=== PATIENT | male | born 1990 | race Caucasian/White ===

== ENCOUNTER 2024-06-29 13:59 | Inpatient (IN) | payer SELFPAY ==
[2024-06-29] MEDS ORDERED: Fentanyl CADD 100 ML IV SCH (14:15)
[2024-06-29 14:21] LABS: #Basophils 0.03 10x3/uL (0.0-0.2); %Basophils 0.4 % (0.0-1.0); %Eosinophils 3.3 % (0.0-10.0); %Lymphocytes 22.3 % (21.0-51.0); %Monocytes 5.3 % (0.0-10.0); %Neutrophils 68.5 % (42.0-75.0); Hematocrit 40.2 % (42.0-52.0); Hemoglobin 13.6 g/dL (14.0-18.0); Mean Corpuscular HGB CONC 33.8 g/dL (32.0-36.0); Mean Corpuscular Hemoglobin 30.8 pg (27.0-31.0); Mean Platelet Volume 9.3 fL (7.4-10.4); Platelet Count 190 10x3/uL (130-400); RBC Distribution Width 12.5 % (11.5-14.5); Red Blood Cell (RBC) Count 4.42 mill/uL (4.70-6.10)
[2024-06-29 14:35] LABS: ALT (SGPT) 14 U/L (8-55); AST (SGOT) 18 U/L (5-34); Albumin 4.1 g/dL (3.5-5.0); Alkaline Phosphatase 46 U/L (40-110); Anion Gap 14 mmol/L (10-20); BUN (Urea Nitrogen) 18 mg/dL (8.9-20.6); Bilirubin, Total 0.4 mg/dL (0.2-1.2); Calc. Creatinine Clearance 0 mL/min (70-130); Calcium 8.7 mg/dL (7.8-10.44); Carbon Dioxide 23 mmol/L (22-29); Chloride 106 mmol/L (98-107); Estimated GFR 117; Globulin 2.5 g/dL (2.4-3.5); Glucose 163 mg/dL (70-105); Potassium 3.6 mmol/L (3.5-5.1); Protein, Total 6.6 g/dL (6.0-8.3); Sodium 139 mmol/L (136-145)
[2024-06-29] MEDS ORDERED: Glucagon 1 MG/ML KIT IM PRN (14:36)
[2024-06-29] MEDS ORDERED: Ondansetron PF 4 MG/2 ML Vial IVP PRN (14:36)
[2024-06-29] MEDS ORDERED: Dextrose 5% in Water 1,000 ML IV PRN (14:36)
[2024-06-29] MEDS ORDERED: Ipratropium/Albuterol 3 ML NEB NEB PRN (14:36)
[2024-06-29] MEDS ORDERED: Ondansetron ODT 4 MG TAB PO PRN (14:36)
[2024-06-29] MEDS ORDERED: hydrALAZINE 20 MG/ML VIAL SLOW IVP PRN (14:36)
[2024-06-29] MEDS ORDERED: Dextrose 50% Abboject 50 ML SYRINGE SLOW IVP PRN (14:36)
[2024-06-29] MEDS ORDERED: Acetaminophen 325 MG TAB PO PRN (14:36)
[2024-06-29 14:42] LABS: PTT 22.9 sec (22.9-36.1); Prothrombin Time 13.2 sec (12.0-14.7)
[2024-06-29] MEDS ORDERED: diphenhydrAMINE 25 MG CAP PO PRN (14:53)
[2024-06-29] MEDS ORDERED: fentaNYL 50 mcg/mL 1 mL Vial ONE ×3 (15:02→18:50)
[2024-06-29] MEDS ORDERED: Methocarbamol 500 MG TAB PO PRN (16:40)
[2024-06-29] MEDS: fentaNYL 50 mcg/mL 1 mL Vial SLOW IVP PRN ×2 (16:57→18:51)
[2024-06-29 16:59] LABS: Troponin I Less than 0.010 ng/mL (< 0.028)
[2024-06-29] MEDS ORDERED: Gabapentin 300 MG CAP ONE ×2 (18:26→21:10)
[2024-06-29] MEDS: Gabapentin 300 MG CAP PO SCH (18:49)
[2024-06-29] MEDS ORDERED: Ketorolac Tromethamine 30 MG (1 mL) VIAL ONE (20:12)
[2024-06-29] MEDS: Ketorolac Tromethamine 30 MG (1 mL) VIAL IVP PRN (20:15)
[2024-06-29] MEDS ORDERED: CEFAZOLIN 2 GM VIAL ONE (22:45)
[2024-06-29] MEDS ORDERED: Sodium Chloride 0.9% 100 ML ONE (22:45)
[2024-06-29] MEDS: CEFAZOLIN 2 GM in Sodium Chloride 0.9% 100 ML IVPB SCH (22:57)
[2024-06-30] MEDS ORDERED: Sodium Chloride 0.9% 100 ML ONE ×2 (05:38→10:52)
[2024-06-30] MEDS ORDERED: CEFAZOLIN 2 GM VIAL ONE ×2 (05:38→10:52)
[2024-06-30 06:17] LABS: #Basophils Less than 0.03 10x3/uL (0.0-0.2); %Basophils 0.2 % (0.0-1.0); %Eosinophils 2.4 % (0.0-10.0); %Lymphocytes 28.7 % (21.0-51.0); %Monocytes 6.9 % (0.0-10.0); %Neutrophils 61.3 % (42.0-75.0); Hematocrit 37.6 % (42.0-52.0); Hemoglobin 12.6 g/dL (14.0-18.0); Mean Corpuscular HGB CONC 33.5 g/dL (32.0-36.0); Mean Corpuscular Hemoglobin 30.8 pg (27.0-31.0); Mean Corpuscular Volume 91.9 fL (78.0-98.0); Mean Platelet Volume 9.4 fL (7.4-10.4); Platelet Count 180 10x3/uL (130-400); RBC Distribution Width 12.6 % (11.5-14.5); Red Blood Cell (RBC) Count 4.09 mill/uL (4.70-6.10)
[2024-06-30] MEDS ORDERED: Ketorolac Tromethamine 30 MG (1 mL) VIAL ONE (06:17)
[2024-06-30 06:29] LABS: Anion Gap 10 mmol/L (10-20); BUN (Urea Nitrogen) 10 mg/dL (8.9-20.6); Calc. Creatinine Clearance 0 mL/min (70-130); Calcium 8.7 mg/dL (7.8-10.44); Carbon Dioxide 25 mmol/L (22-29); Chloride 108 mmol/L (98-107); Estimated GFR 120; Glucose 97 mg/dL (70-105); Potassium 3.7 mmol/L (3.5-5.1); Sodium 139 mmol/L (136-145)
[2024-06-30] MEDS ORDERED: Gabapentin 300 MG CAP ONE (08:07)
[2024-06-30] MEDS ORDERED: fentaNYL PF 100 MCG/2 ML SYRINGE ONE ×2 (10:40→11:48)
[2024-06-30] MEDS ORDERED: PROPOFOL 20 ML ONE (10:40)
[2024-06-30] MEDS ORDERED: Lidocaine 1% PF 5 ML VIAL ONE (10:41)
[2024-06-30] MEDS ORDERED: Ondansetron PF 4 MG/2 ML Vial ONE (10:41)
[2024-06-30] MEDS ORDERED: Dexamethasone 20 MG/5 ML VIAL ONE (10:41)
[2024-06-30] MEDS ORDERED: Rocuronium Bromide 10 MG/ML (10ML VIAL) ONE (10:41)
[2024-06-30] MEDS ORDERED: Midazolam HCl 2 mg/2 ml Vial ONE (10:43)
[2024-06-30] MEDS ORDERED: Ipratropium/Albuterol 3 ML NEB ONE (10:49)
[2024-06-30] MEDS ORDERED: Dexmedetomidine 200 MCG/2 ML VIAL ONE (14:18)
[2024-06-30] MEDS ORDERED: HYDROmorphone 2 MG/ML VIAL ONE (14:24)
[2024-06-30] MEDS ORDERED: SUGAMMADEX SODIUM 200 MG/2 ML VIAL ONE ×3 (14:42→14:57)
[2024-06-30] MEDS ORDERED: Bupivacaine 0.25% HCL 30 ML VIAL ONE (14:45)
[2024-06-30 20:12] VITALS: BMI 24.5
[2024-06-30] MEDS: TETANUS, DIPHTHERIA TOX,ADULT (TDVAX) 0.5 ML VIAL IM ONE (20:16)
[2024-06-30] MEDS: CEFAZOLIN 2 GM in Sodium Chloride 0.9% 100 ML IVPB SCH (20:17)
[2024-06-30] MEDS: traMADol HCl 50 MG TAB PO PRN (20:20)
[2024-07-01 08:14] VITALS: BP 121/64; TEMP 97.6
[2024-07-02] MEDS ORDERED: FLU (Fluarix Triv) TS24-25(6MOS UP)/PF 45 MCG/0.5 ML Syringe IM ONE (17:15)
== END 2024-07-01 12:25 | disposition home or self-care (01) | DRG 513 ==
LOC: ERS 13:59 → ERHOLD 14:52 → T4-B 06-30 18:27
PROVIDERS: ADMIT Surgery; ATTEND Surgery
PROC: 0PSV0ZZ Reposition Left Finger Phalanx, Open Approach (ICD-10-PCS; principal; 2024-06-30)
PROC: 0LQ80ZZ Repair Left Hand Tendon, Open Approach (ICD-10-PCS; 2024-06-30)
PROC: 01U Peripheral Nervous System, Supplement (ICD-10-PCS; 2024-06-30)
DX: S62.611B Displaced fracture of proximal phalanx of left index finger, initial encounter for open fracture (principal); S66.921A Laceration of unspecified muscle, fascia and tendon at wrist and hand level, right hand, initial encounter; W27.0XXA Contact with workbench tool, initial encounter; F17.210 Nicotine dependence, cigarettes, uncomplicated; Z91.013 Allergy to seafood; Z88.5 Allergy status to narcotic agent; Z98.890 Other specified postprocedural states; S64.22XA Injury of radial nerve at wrist and hand level of left arm, initial encounter; S64.02XA Injury of ulnar nerve at wrist and hand level of left arm, initial encounter; S64.495A Injury of digital nerve of left ring finger, initial encounter
CPT/HCPCS: 36415; 71045; 80048; 80053; 84484; 85025; 85610; 85730; 93005; 93010; A6223; G0390; J0665; J1100; J1170; J1885; J2250; J2405; J2704; J3010; J7620